=== PATIENT | male | born 1940 | race Caucasian/White ===

== ENCOUNTER → 2020-01-06 09:00 | Outpatient (CLI) | payer MEDICARE, SELFPAY ==
--- NOTE | ~2020-01-06 | MR_ITS ---
EXAMINATION: MR shoulder RT wo con DATE: 01/06/2020 09:57 INDICATION: Rotator cuff tear. TECHNIQUE: Magnetic resonance imaging (MRI) of the right shoulder was performed without intravenous c ontrast. Sequences included axial PD-weighted FS FSE, coronal oblique PD-weighted FS FSE, coronal obl ique T2-weighted FS FSE, sagittal PD-weighted FS FSE, and sagittal T1-weighted SE. Evaluation is mild ly limited by some degree of motion artifact or blurring on all sequences, each of which was repeated . COMPARISON: Right shoulder radiographs dated 12/31/2019 FINDINGS: Coracoacromial arch: The acromion undersurface is curved in morphology (type II). The coracoacromial ligament is normal. M ild to moderate acromioclavicular osteoarthritis. Rotator cuff: Complete full-thickness tears of the supraspinatus and infraspinatus tendons along the superior and m iddle facet footplates. There appears be a small amount of residual frayed tendon material along the middle facet footplate. The tear margin is retracted up to 3.5 cm medially to the level of the acromi oclavicular joint line. There is moderate tendinopathy along the retracted tear margin. 1.4 x 0.6 x 0 .6 cm intrasubstance ganglion cyst along the myotendinous junction of the infraspinatus tendon. The t eres minor tendon is normal. Mild to moderate subscapularis tendinopathy more severe along the cephal ad aspect of the tendon without discrete tear. Medial retraction as well as mild fatty atrophy of the supraspinatus and infraspinatus muscle bellies. Biceps tendon, glenoid labrum and glenohumeral cartilage: Mild tendinopathy without discrete tear of the intra-articular long head biceps tendon. Amorphous inc reased signal consistent with degeneration at the posterosuperior glenoid labrum without discrete speedy ear labral tear. Partial-thickness cartilage loss with smooth chondral surface along the cephalad thi rd of the glenoid. Additional partial thickness cartilage loss with chondral surface irregularity at the apex of the humeral head. Fluid: Small glenohumeral joint effusion with fluid extending into the subacromial/subdeltoid bursa as well as the subcoracoid bursa through the full-thickness rotator cuff tear. No loose osteochondral bodies. Bones: Normal marrow signal with no fracture or pathologic marrow replacing process. Mild cystic change at t he middle facet of the greater tuberosity likely related to chronic rotator cuff disease. IMPRESSION: 1. Large full-thickness rotator cuff tear involving the entire supraspinatus and infraspinatus tendon s. 2. Mild glenohumeral osteoarthritis with posterior superior labral degeneration. 3. Mild to moderate acromioclavicular osteoarthritis. 4. Evaluation mildly to moderately limited by some degree of motion artifact on all sequences despite repetition of every sequence. Reviewed, dictated and finalized at location A. IMPRESSION: 1. Large full-thickness rotator cuff tear involving the entire supraspinatus an d infraspinatus tendons. 2. Mild glenohumeral osteoarthritis with posterior superior labral degeneration . 3. Mild to moderate acromioclavicular osteoarthritis. 4. Evaluation mildly to moderately limited by some degree of motion artifact on all sequences despite repetition of every sequence.
== END ==
PROVIDERS: PCP Family Medicine; Visit Provider Orthopaedic Surgery
DX: M19.011 Primary osteoarthritis, right shoulder (principal); M75.101 Unspecified rotator cuff tear or rupture of right shoulder, not specified as traumatic
CPT/HCPCS: 73221

== ENCOUNTER 2020-03-10 13:51 | Outpatient (CLI) | payer MEDICARE, SELFPAY ==
[2020-03-10 14:53] LABS: Basophils Percent Auto 0.3 % (0.2-1.2); Eosinophils Absolute Auto 0.1 K/mm3 (0-0.3); Eosinophils Percent Auto 0.7 % (0-4.4); Hemoglobin 15.3 g/dL (14.0-18.0); Immature Granulocyte Absolute 0.03 K/mm3 (0.00-0.031); Immature Granulocyte Percent A 0.4 % (0-0.5); Lymphocytes Percent Auto 13.1 % (18.3-44.2); Mean Corpuscular HGB Conc 33.3 g/dl (32-36); Mean Corpuscular Hemoglobin 29.3 pg (26-34); Mean Corpuscular Volume 88.1 fl (80-100); Mean Platelet Volume 12.1 fl (7.4-10.4); Monocytes Absolute Auto 0.5 K/mm3 (0.1-0.6); Monocytes Percent Auto 6.8 % (2.6-8.5); Neutrophils Percent Auto 78.7 % (45.5-73.1); Platelet Count Result 179 k/mm3 (150-375); Red Blood Count 5.22 M/mm3 (4.6-6.20); Red Cell Distribution Width 13.1 % (11.5-14.5); White Blood Count 7.6 K/mm3 (4.5-10.0)
== END 2020-03-10 13:52 | disposition home or self-care (01) ==
PROVIDERS: PCP Family Medicine; Visit Provider Orthopaedic Surgery
DX: S46.011D Strain of muscle(s) and tendon(s) of the rotator cuff of right shoulder, subsequent encounter (principal); Z01.818 Encounter for other preprocedural examination; X58.XXXD Exposure to other specified factors, subsequent encounter
CPT/HCPCS: 36415; 85025; 86850; 86900; 86901; 87081

== ENCOUNTER 2020-03-13 01:20 | Outpatient (CLI) | payer MEDICARE, SELFPAY ==
[2020-03-13 19:30] LABS: SARS-CoV-2 RNA PCR Positive
== END 2020-03-13 01:21 | disposition home or self-care (01) ==
LOC: ANHCOVIDDT 01:20
PROVIDERS: PCP Family Medicine; Visit Provider Orthopaedic Surgery
DX: Z01.812 Encounter for preprocedural laboratory examination (principal); U07.1 COVID-19
CPT/HCPCS: 87635; C9803; U0003

== ENCOUNTER 2020-05-01 00:23 | Outpatient (CLI) | payer MEDICARE, SELFPAY ==
[2020-05-01 17:37] LABS: SARS-CoV-2 RNA PCR Negative
== END 2020-05-01 00:24 | disposition home or self-care (01) ==
LOC: ANHCOVIDDT 00:23
PROVIDERS: PCP Family Medicine; Visit Provider Orthopaedic Surgery
DX: Z01.812 Encounter for preprocedural laboratory examination (principal); Z20.828 Contact with and (suspected) exposure to other viral communicable diseases
CPT/HCPCS: 87635; C9803; U0003

== ENCOUNTER 2020-05-04 10:56 | Inpatient (IN) | payer MEDICARE, SELFPAY ==
[2020-03-10 13:58] VITALS: BP 147/75; PULSE 56; RESP 16; TEMP 37.1; O2SAT 96; BMI 31.4
[2020-04-27 09:44] VITALS: BMI 32.5
--- NOTE | 2020-05-03 14:54 | WPDANESEPPF ---
Anes - Initial Pre Proc Eval Procedure: Operation Date: 05/04/20 07:30 Proposed Procedures p Right Reverse Total Shoulder Arthroplasty - Leonidas Flores MD Date/Time: 05/03/20 14:54 Surgeon: Leonidas Flores MD Pre Op Diagnosis: Right Rotator Cuff Tear Patient Data Age: 79 Gender: M Height: 1.91 m Weight: 118 kg Last Vital Signs Temp 37.1 C 03/10/20 13:58 Pulse 56 L 03/10/20 13:58 Resp 16 03/10/20 13:58 BP 147/75 H 03/10/20 13:58 Pulse Ox 96 03/10/20 13:58 Allergies Allergy/AdvReac Type Severity Reaction Status Date / Time No Known Allergies Allergy Verified 04/27/20 09:53 Home Medications Medication Instructions Recorded Confirmed Type aspirin 81 mg tablet,delayed 81 mg PO DAILY 12/31/19 05/04/20 History release cetirizine 10 mg tablet 5 mg PO DAILY 12/31/19 05/04/20 History clopidogrel 75 mg tablet 75 mg PO DAILY 12/31/19 05/04/20 History metoprolol tartrate 25 mg tablet 25 mg PO BID 12/31/19 05/04/20 History multivitamin 1 cap PO DAILY 12/31/19 05/04/20 History fluticasone propionate [Flonase 1 spray INTRANASAL BID 03/10/20 05/04/20 History Allergy Relief] Patient hx anesthesia problems: none Family hx anesthesia problems: none PMFSH Past Medical History Medical History (Updated 05/03/20 @ 14:56 by Fareed To MD) CAD (coronary artery disease) 4 coronary stents Deviated septum Enlarged prostate Heart disease Hypertension IBS (irritable bowel syndrome) Obesity Pilonidal cyst Wrist arthritis Surgical History Surgical History (Updated 05/03/20 @ 14:55 by Fareed To MD) H/O heart artery stent 4 coronary stents History of appendectomy Family History Family History Other Carcinoma of colon Family history of arthritis Family history of cardiovascular disease Social History Social History Smoking status: Former smoker Additional smoking assessment comments: STATES SMOKED 1 1/2PK/DAY/8YRS QUIT 1969 Alcohol intake: never Living arrangements: with family Spiritual care concerns: No Anes - Eval Final PreProcedure Day of Procedure 05/03/20 14:54 Patient weight: obese Heart: regular rate and rhythm Lungs: clear to auscultation and normal air movement Airway: Mallampati scale class II Neurological: alert and oriented Last oral intake: >/= 8 hours ASA classification: III Emergent: no Anesthetic plan: proceed Anesthesia type and monitoring: general ETT Informed Consent: The patient's anesthetic plan and its attendant risks and benefits were discussed with the patient/family/POA. Questions were solicited and answers provided to the satisfaction of the patient/family/POA.
[2020-05-04] VITALS (13 sets, daily range): BP systolic 126–156; BP diastolic 68–91; PULSE 52–70; RESP 16–22; TEMP 36.1–37.1; O2SAT 93–100
--- NOTE | ~2020-05-04 | XR_ITS ---
EXAMINATION: XR shoulder RT min 2V DATE: 05/04/2020 10:23 INDICATION: Status post reverse right total shoulder arthroplasty. TECHNIQUE: AP and transscapular Y views of the right shoulder were obtained. COMPARISON: None FINDINGS: Reverse right total shoulder arthroplasty which is in near-anatomic alignment. No fracture. Mild righ t acromioclavicular osteoarthritis. Expected postoperative gas in the surrounding soft tissues. Right lung is clear. IMPRESSION: Reverse right total shoulder arthroplasty in near-anatomic alignment, negative for postoperative purp oses. Reviewed, dictated and finalized at location A. IMPRESSION: Reverse right total shoulder arthroplasty in near-anatomic alignment, negative for postoperative purposes.
[2020-05-04] MEDS: ACETAMINOPHEN 500 MG TABLET 1000 MG PO (07:00)
[2020-05-04] MEDS: TRANEXAMIC ACID 1,000MG/ISO100 1,000 MG/100 ML BAG 200 MG IVPB (07:00)
--- NOTE | 2020-05-04 07:16 | WPDHPUPDATE1 ---
History and Physical Update Update Date/Time: 05/04/20 07:16 History and Physical has been reviewed, including an updated exam of the patient. There are NO changes in the patient's condition. Risks, benefits, and alternatives have been discussed and questions answered. Patient agrees to proceed with procedure.
[2020-05-04] MEDS: LACTATED RINGERS 1,000 ML 30 ML IV CONT ×2 (07:20→10:06)
[2020-05-04] MEDS: KETOROLAC 15 MG/ML VIAL (*BKC) IV PUSH (07:21)
[2020-05-04] MEDS: ceFAZolin 2 GM/D5W 50 ML 2 GM/50 ML BAG IVPB (07:27)
--- NOTE | 2020-05-04 07:34 | WPDANESPNB ---
Anes - Peripheral Nerve Block Date/Time: 05/04/20 07:34 I have discussed with the patient/family/POA the placement of a peripheral nerve block for post-operative pain management, including associated risks, benefits, complications, and side effects. Alternative methods of post-operative analgesia were detailed. Questions were solicited and answers provided to the satisfaction of the patient/family/POA. Time-Out: A pre-procedural Time-Out was completed immediately before starting the procedure and confirmed: Patient Identification, Site, Procedure, Patient Position and the Availability of Requisite Equipment. Clinical Indications: Acute post-operative pain management requested by the operative surgeon. Nerve Block Insertion Note Anes-nerve block: supraclavicular right Patient position: supine Skin prep: chlorhexidine Needle: 22 gauge, stimulating, insulated echogenic needle. Needle length: 80 mm Technique: ultrasound (in plane) Injectate: bupivacaine 0.5% with epi 5 mcg/ml (20cc) Observations: tolerated well Complications: none Procedure start time:: 715 Procedure end time:: 720
--- NOTE | 2020-05-04 10:08 | PM.PROC ---
Procedure Note - Detailed Date of procedure: 05/04/20 Pre-op diagnosis: Right Rotator Cuff Tear Post-op diagnosis: same Procedure performed: Reverse total shoulder arthroplasty. Biceps tenodesis. Description of procedure: Massive rotator cuff tear with atrophy and severe retraction, including all of the supra and infraspinatus. Teres minor intact. Severe clinical symptoms. Reverse total shoulder performed. Subscapularis repaired. Anatomic retroversion was approximately 35-40 degrees. The stem was placed at 30? retroversion. Bone quality was excellent. The 25 mm glenoid sphere base plate was placed at the inferior aspect of the glenoid. The post slightly exited the vault posteriorly. The 10 degree inferior guide was used. Implants: Tornier Aequalis reversed glenoid base plate 25mm, reversed insert 6mm thickness; Aequalis Ascend Flex humeral stem size 3B. Aequalis Reversed II glenoid sphere 39 diameter; Reversed tray high offset at 11 o' clock position. Anesthesia: GETA and regional Surgeon: Leonidas Flores MD Estimated blood loss (mL): 150 Drains: No Packing: No Pathology: none sent Complications: None Condition: stable Disposition: PACU Findings: OPERATIVE DETAILS: The patient was given an interscalene block in the preoperative area. Preoperative antibiotics were given. The patient was transferred to the operating room and a general anesthetic was administered. The beach chair position was used at 45 degrees. All bony prominences were padded. The head was carefully stabilized on the [facility] overhead crane inspector. A sterile prep and drape was performed in the usual manner with ChloraPrep. A longitudinal incision was created at the anterior shoulder just lateral to the deltopectoral interval. Careful dissection was performed to expose the interval and protect the cephalic vein. The vein was retracted medially. The upper border of the pectoralis was released. Anterior circumflex vessel branches were suture ligated. The biceps was tenodesed. A subscapularis tenotomy was performed. The inferior capsule was released, exposing the humeral head. Osteophytes were removed. Care was taken to stay on bone to protect the axillary nerve. The anatomic head cut was taken with the oscillating saw. Sounding and broaching was performed. The neck anteversion and inclination were carefully assessed. The cut protector was placed, and attention was turned to the glenoid. Retractors were placed. Releases were carried out for exposure. The subscapularis was mobilized, the inferior capsule and long head of triceps released, and the superior and middle glenohumeral ligaments released as well. Labral tissue was resected as needed. The sizing template was used to assess the baseplate position low on the glenoid. A guide pin was placed. Minimal reaming was used to accomplish a flat surface without violating the subchondral bone. Version was corrected according to preoperative templating. The boss, and central screw were drilled. The real component was impacted into position. A compression screw was placed anteriorly. Supplemental locking screws were placed superiorly and inferiorly. The glenosphere was impacted into the taper, and secured with the locking screw. The humeral components were trialed. The real humeral stem and tray, and insert were impacted into position. The shoulder was copiously irrigated periodically with pulsatile lavage. The shoulder was reduced and stability confirmed. The biceps tenodesis was incorporated with the pectoralis tendon repair. The deltopectoral space was reapproximated with number 2 Vicryl. The remained tissue was closed with 0 Quill and 2-0 Quill running suture and steri-strips. A sterile dressing and shoulder immobilizer was placed. The patient was transferred to the recovery room.
[2020-05-04] MEDS: SODIUM CHLORIDE 0.9% IV 1,000 ML 125 ML IV CONT (12:01)
[2020-05-04] MEDS: KETOROLAC 30 MG/ML VIAL (*BKC) 15 MG IV PUSH ×2 (12:02→17:20)
[2020-05-04] MEDS: ASPIRIN 81 MG ENTERIC TABLET PO (17:15)
[2020-05-04] MEDS: DOCUSATE SODIUM 100 MG CAPSULE PO (20:37)
[2020-05-04] MEDS: METOPROLOL TARTRATE 25 MG TABLET PO (20:37)
[2020-05-04] MEDS: FLUTICASONE PROPIONATE 0.05% NA SPR 16 GM BTL (*BKC) 1 SPRAY NASAL (20:38)
--- NOTE | 2020-05-04 23:50 | PC.NURSE ---
Pt complaining midsternal chest pain non radiating. Pt rates pain as a 6. Pt anxious. Rapid response team called. Pt placed on tele.
[2020-05-05] VITALS (23 sets, daily range): BP systolic 123–175; BP diastolic 62–80; PULSE 59–87; RESP 20–24; TEMP 36.3–37.2; O2SAT 95–99
--- NOTE | 2020-05-05 | ECHO_ITS ---
Patient Info Name: Kendall Mckeon Age: 79 years : 1940 Gender: Male Ht: 75 in Wt: 255 lbs BSA: 2.50 m2 HR: 60 bpm BP: 139 / 62 mmHg Heart Rhythm: Sinus Rhythm Technical Quality: Good Exam Date: 05/05/2020 11:34 AM Exam Location: [facility] Pulmonary Patient Status: Inpatient Admit Date: 05/04/2020 Staff Ordering Physician: Cecilio Munguia MD Command Post Superintendent: Brant Lao RDCS Attending Provider: Leonidas Flores MD Exam Type: CA echo doppler color flow Study Info Indications I21.4 - Non-ST elevation (NSTEMI) myocardial infarction Complete two-dimensional, color flow and Doppler transthoracic echocardiogram is performed. Strain analysis performed. History/Risk Factors NSTEMI; CAD s/p 4 stents, HTN, chest pain. Summary 1. Complete two-dimensional, color flow and Doppler transthoracic echocardiogram is performed. 2. Left ventricular systolic function is normal, estimated at 60-65%. 3. There is mildly increased left ventricular wall thickness. 4. There is mild aortic valve sclerosis. 5. There is mild aortic valve stenosis. 6. There is mild mitral valve regurgitation. Left Ventricle Left ventricular chamber dimension is normal. Left ventricular systolic function is normal, estimated at 60-65%. There is mildly increased left ventricular wall thickness. Left ventricular septal wall motion is normal. The left ventricular diastolic function is normal. Right Ventricle Right ventricular chamber dimension is normal. Right ventricular systolic function is normal. Left Atria Left atrial chamber dimension is normal. Right Atria Right atrial chamber dimension is normal. Aortic Valve The aortic valve is trileaflet. There is mild aortic valve sclerosis. There is mild aortic valve stenosis. There is no aortic valve regurgitation. Pulmonic Valve The pulmonic valve is normal. There is no pulmonic valve stenosis. There is no pulmonic regurgitation. Mitral Valve The mitral valve has normal leaflets. There is no mitral valve stenosis. There is mild mitral valve regurgitation. Tricuspid Valve The tricuspid valve leaflets are normal. There is no significant tricuspid valve stenosis. There is no tricuspid valve regurgitation. No pulmonary hypertension, estimated pulmonary arterial systolic pressure is 35 mmHg. Pericardium/Pleural The pericardium appears normal. There is no pericardial effusion. Inferior Vena Cava Normal inferior vena cava with >50% collapse upon inspiration consistent with normal right atrial pressure, 5 mmHg. Aorta The aortic root size at the sinus of Valsalva is normal. The prox ascending aorta size is normal. Left Ventricular Outflow Tract Name Value Normal LVOT 2D LVOT Diameter 2.0 cm LVOT Doppler LVOT Peak Gradient 7 mmHg LVOT Mean Gradient 4 mmHg LVOT VTI 29 cm LVOT VTI/AV VTI Ratio 0.8 LVOT Stroke Volume 93 ml LVOT CO 5.4 l/min
[2020-05-05] MEDS: KETOROLAC 30 MG/ML VIAL (*BKC) 15 MG IV PUSH ×3 (00:01→13:44)
[2020-05-05 01:20] LABS: Creatine Kinase 112 U/L (55-170); Creatine Kinase MB 1.7 ng/mL (0.0-2.37)
[2020-05-05 01:21] LABS: Troponin I 0.165 ng/mL (0.000-0.034)
--- NOTE | 2020-05-05 01:37 | PM.IMCN ---
Assessment and Plan Assessment and plan (1) CAD (coronary artery disease): Qualifiers: Associated angina: without angina Coronary Disease-Associated Artery/Lesion type: [place] artery [place] vs. transplanted heart: [place] heart Qualified Code(s): I25.10 - Atherosclerotic heart disease of [place] coronary artery without angina pectoris Code(s): I25.10 - Atherosclerotic heart disease of [place] coronary artery without angina pectoris Status: Acute (2) Rotator cuff tear, right: Qualifiers: Rotator cuff tear extent: unspecified tear extent Rotator cuff tear trauma status: nontraumatic Qualified Code(s): M75.101 - Unspecified rotator cuff tear or rupture of right shoulder, not specified as traumatic Code(s): M75.101 - Unspecified rotator cuff tear or rupture of right shoulder, not specified as traumatic Status: Acute (3) Elevated troponin: Code(s): R77.8 - Other specified abnormalities of plasma proteins Status: Acute (4) Hypertension: Code(s): I10 - Essential (primary) hypertension Status: Acute Additional Plan Patient is a 79 year old with past medical history CAD underwent right reverse total shoulder arthroplasty, biceps tenodesis. developed chest pain Postop later in the evening and rapid response was called. his troponin was elevated at 0.16, EKG showed normal sinus rhythm with PVC, no ST elevation , his symptoms resolved with nitroglycerin x2. his troponins are being trended. # atypical chest pain, elevated troponin - trending troponins, initial troponin 0.165 elevated, chest pain resolved with nitro , if troponin continues to rise will move patient to IMU and start heparin drip - heart score 6, KAL score 4 - chest pain was nonexertional, patient was sitting in bed however he does have significant coronary history and the chest pain was relieved by nitro - patient takes aspirin 81, will give aspirin 162mg x 1 - supplemental oxygen as needed, nitroglycerin p.r.n. - consult to cardiology # CAD s/p 4 stents # HTN - continue home metoprolol, aspirin, Plavix # seasonal allergies: Continue cetirizine, flonase # right rotator cuff repair - s/p reverse total shoulder arthroplasty and Biceps tenodesis by Dr: Leonidas Flores. - continue pain control, DVT prophylaxis, nausea control as per primary team Thank you for consult hospitalist service consult! if you have any questions please do not hesitate to call. HPI Data of Consult Consult date: 05/05/20 Requesting Physician: Leonidas Flores MD Primary Care Provider: Lm Westfall, Jeri. Consult Narrative Narrative: Kendall Mckeon is a 79 year old male with past medical history of CAD status post 4 stents who is status post reverse total shoulder arthroplasty and biceps tenodesis by Dr. Leonidas Flores. the procedure went well with no problems. Later in the evening rapid response was called for complaints of chest pain. patient states he has reflux in the past and this chest pain felt different. this chest pain was in the center of his chest with pressure and heaviness. EKG showed normal sinus rhythm with PVC, no ST elevation, his symptoms resolved with nitroglycerin x2. Initial troponin was 0.165, his troponins are being trended. patient has significant family history coronary disease. He states his own personal coronary disease is significant in that he has at least one stent in each great vessel. He quit smoking 50 years ago was smoking a pack and half a day for 8 years. He states his last heart catheterization was over 6 years ago. Review of Systems Review of Systems: Narrative: Constitutional: No Fever, No Chills, No Night Sweats, No Fatigue, No Malaise ENT/Mouth: No Hearing Changes, No Ear Pain, No Nasal Congestion, No Sinus Pain, No Hoarseness, No sore throat, No Rhinorrhea, No Swallowing Difficulty Eyes: No Eye Pain, No Redness, No Vision Changes Cardiovascular: No Palpitations, No Dyspne
[2020-05-05] MEDS: ASPIRIN 81 MG CHEWABLE TABLET 162 MG PO (02:27)
[2020-05-05] MEDS: FAMOTIDINE 20 MG TABLET PO (03:32)
[2020-05-05 03:57] LABS: Troponin I 0.214 ng/mL (0.000-0.034)
--- NOTE | 2020-05-05 04:43 | PC.NURSE ---
This patient, Kendall Mckeon, was transferred to [ [id number]] on 05/05/20 at 0430. Personal belongings sent with patient. Report given to Vicky. Appropriate documentation sent with patient. Dr Flores notified of transfer. Pt notified his as well
--- NOTE | 2020-05-05 05:36 | PC.NURSE ---
This patient, Kendall Mckeon, was received from [[id number] ] on 05/05/20 at 0430. Personal belongings list checked and signed. Patient/family oriented to unit policies and routines
[2020-05-05 06:26] LABS: Basophils Percent Auto 0.2 % (0.2-1.2); Eosinophils Percent Auto 0.1 % (0-4.4); Hematocrit 41.3 % (42.0-52.0); Hemoglobin 14.1 g/dL (14.0-18.0); Immature Granulocyte Absolute 0.07 K/mm3 (0.00-0.031); Immature Granulocyte Percent A 0.6 % (0-0.5); Lymphocytes Absolute Auto 1.07 K/mm3 (0.9-3.2); Lymphocytes Percent Auto 9.1 % (18.3-44.2); Mean Corpuscular HGB Conc 34.1 g/dl (32-36); Mean Corpuscular Hemoglobin 29.4 pg (26-34); Mean Corpuscular Volume 86.2 fl (80-100); Mean Platelet Volume 11.6 fl (7.4-10.4); Monocytes Absolute Auto 1.7 K/mm3 (0.1-0.6); Monocytes Percent Auto 14.4 % (2.6-8.5); Neutrophils Absolute Auto 8.9 K/mm3 (1.3-6.7); Neutrophils Percent Auto 75.6 % (45.5-73.1); Platelet Count Result 152 k/mm3 (150-375); Red Blood Count 4.79 M/mm3 (4.6-6.20); White Blood Count 11.8 K/mm3 (4.5-10.0)
[2020-05-05 06:29] LABS: INR 1.3; Prothrombin Time 15.5 Seconds (11.1-14.7)
[2020-05-05 06:30] LABS: Partial Thromboplastin Time 31.5 SECONDS (22.3-36.8)
[2020-05-05 06:50] LABS: Cholesterol 128 mg/dL (0-200); HDL Direct 33 mg/dL; Triglycerides 95 mg/dL (<150)
[2020-05-05 06:53] LABS: LDL Cholesterol Direct 73 mg/dL
[2020-05-05 07:40] LABS: Hypochromasia 1+ (NORMAL); Ovalocytes 1+ (NORMAL); Platelet Estimate Adequate (Adequate)
--- NOTE | 2020-05-05 07:42 | PCOTNOTE ---
OT evaluation attempted this morning. Hold this AM per RN due to elevated Troponin. Will attempt OT evaluation at later time when medically appropriate.
[2020-05-05] MEDS: HEPARIN SODIUM 5,000 UNITS/ML VIAL 4000 UNITS IV PUSH ×3 (08:24→22:35)
[2020-05-05] MEDS: LORATADINE 10 MG TABLET PO (08:26)
[2020-05-05] MEDS: MULTIVITAMINS THERAPEUTIC TAB (*BKC) 1 TABLET PO (08:30)
[2020-05-05] MEDS: ASPIRIN 81 MG ENTERIC TABLET PO ×2 (08:30→17:31)
[2020-05-05] MEDS: METOPROLOL TARTRATE 25 MG TABLET PO ×2 (08:30→20:41)
[2020-05-05] MEDS: FLUTICASONE PROPIONATE 0.05% NA SPR 16 GM BTL (*BKC) 1 SPRAY NASAL ×2 (08:31→20:45)
[2020-05-05] MEDS: DOCUSATE SODIUM 100 MG CAPSULE PO ×2 (08:31→20:44)
[2020-05-05] MEDS: HEPARIN SOD/D5W 100 UNITS/ML 25,000 UNITS/250 ML BAG 10 UNITS IV CONT (08:34)
--- NOTE | 2020-05-05 10:10 | PCPTNOTE ---
Attempted PT eval. Hold per RN due to increased troponins. Will try again at later time.
[2020-05-05 10:17] LABS: Hematocrit 43.7 % (42.0-52.0); Hemoglobin 14.5 g/dL (14.0-18.0); Mean Corpuscular HGB Conc 33.2 g/dl (32-36); Mean Corpuscular Hemoglobin 29.6 pg (26-34); Mean Corpuscular Volume 89.2 fl (80-100); Mean Platelet Volume 10.3 fl (7.4-10.4); Platelet Count Result 168 k/mm3 (150-375); Red Cell Distribution Width 13.2 % (11.5-14.5); White Blood Count 10.4 K/mm3 (4.5-10.0)
[2020-05-05 10:32] LABS: Anion Gap 7 mmol/L (8-16); Blood Urea Nitrogen 18 mg/dL (9-20); Calcium 8.4 mg/dL (8.4-10.2); Carbon Dioxide 26 mmol/L (22-30); Chloride 104 mmol/L (98-107); Estimated CRCL calculation 77 ml/min; Estimated Glomerular Filt Rate > 60; Glucose 192 mg/dL (75-110); Magnesium 1.6 mg/dL (1.6-2.3); Potassium 3.7 mmol/L (3.4-5.0); Sodium 137 mmol/L (137-145)
--- NOTE | 2020-05-05 10:44 | ECG_ITS ---
Measurements Intervals [place] Rate: 60 P: 91 LA: 212 QRS: 21 QRSD: 81 T: 15 QT: 383 QTc: 383 Interpretive Statements SINUS RHYTHM WITH FIRST DEGREE AV BLOCK EARLY PRECORDIAL R/S TRANSITION BASELINE WANDER- II, III, V2 ABNORMAL ECG Electronically Signed On 05-05-2020 12:03:52 CDT by Martín Cuellar D.O.
--- NOTE | 2020-05-05 11:16 | PM.CNCAR ---
Assessment and Plan Assessment and plan (1) Elevated troponin: Code(s): R77.8 - Other specified abnormalities of plasma proteins Status: Acute Assessment and Plan: likely due to non ST elevation myocardial function, seems to be showing more elevation now, currently on heparin and aspirin, continue closer monitoring, in view of history of stents in the past and elevated troponin he would need to have cardiac catheterization (2) CAD (coronary artery disease): Qualifiers: Coronary Disease-Associated Artery/Lesion type: [place] artery [place] vs. transplanted heart: [place] heart Associated angina: without angina Qualified Code(s): I25.10 - Atherosclerotic heart disease of [place] coronary artery without angina pectoris Code(s): I25.10 - Atherosclerotic heart disease of [place] coronary artery without angina pectoris Status: Acute (3) Rotator cuff tear, right: Qualifiers: Rotator cuff tear extent: unspecified tear extent Rotator cuff tear trauma status: nontraumatic Qualified Code(s): M75.101 - Unspecified rotator cuff tear or rupture of right shoulder, not specified as traumatic Code(s): M75.101 - Unspecified rotator cuff tear or rupture of right shoulder, not specified as traumatic Status: Acute (4) Hypertension: Code(s): I10 - Essential (primary) hypertension Status: Acute (5) Non-ST elevation myocardial infarction (NSTEMI): Code(s): I21.4 - Non-ST elevation (NSTEMI) myocardial infarction Status: Acute Assessment and Plan: with chest pain and elevated troponin, will proceed with cardiac catheterization. will plan cardiac catheterization. The procedure was discussed with the patient, risks, benefits, and alternative diagnostic measure was explained, patient agreed to the procedure Additional Plan Thank you for allowing me to participate in this patient's care, I will be following up with you. Please do not hesitate to call me for any other inquiry History of Present Illness History of Present Illness Consult date/time: 05/05/20 11:16 chief complaint is chest pain. Mr. Mckeon is 79 years old gentleman, with history of coronary artery disease status post multiple stents to the RCA into the LAD, was admitted to the hospital for elective right shoulder surgery rotator cuff repair, underwent his surgery with no complication and he did well but noted yesterday to have chest pain. Had history of tightness in the chest mostly retrosternal with no radiation, improved with nitroglycerin. Subsequently cardiac enzymes were done and showed slight elevation of troponin. He has history of known coronary disease previous stents he normally follows with Dr. Claros at [facility], he had a stress test prior to his surgery back in January and was reported negative. According to him has been taking his medications regularly. Currently after transfer has been in sinus rhythm and no more chest pain. Troponin is slightly elevated and trending up. No significant shortness of breath no dizziness no lightheadedness Reason For Visit: Right Rotator Cuff Tear Review of Systems Constitutional: Constitutional: Reports no additional constitutional complaints Cardiovascular: Cardiovascular: Reports as per HPI Respiratory: Respiratory: Reports as per HPI [facility] Past Medical History Medical History CAD (coronary artery disease) 4 coronary stents Deviated septum Enlarged prostate Heart disease Hypertension IBS (irritable bowel syndrome) Obesity Pilonidal cyst Wrist arthritis Surgical History Surgical History H/O heart artery stent 4 coronary stents History of appendectomy Status post bilateral knee replacements Family History Family History Other Carcinoma of colon Family
--- NOTE | 2020-05-05 11:22 | PCOTNOTE ---
Patient to go for cardiac cath this afternoon. Will complete OT evaluation once complete and medically appropriate.
--- NOTE | 2020-05-05 13:00 | WPDANESPN ---
Anes - Prog Note Post-Op Date/Time: 05/05/20 13:00 Cardiovascular status: normal Respiratory status: normal Airway patency: baseline Mental status: baseline Post-Op hydration status: normal Vital Signs: Last Vital Signs Temp 97.6 F 05/05/20 12:39 Pulse 59 L 05/05/20 12:39 Resp 20 05/05/20 12:39 BP 127/65 05/05/20 12:39 Pulse Ox 99 05/05/20 12:39 Pain Score (VAS): 08/25 I/O: Intake & Output 05/04/20 05/05/20 05/05/20 23:59 07:59 15:59 Intake Total 720 700 240 Output Total 300 800 100 Balance 420 -100 140 Laboratory Tests 05/05/20 09:57 05/05/20 09:57 05/04/20 05/04/20 05/05/20 23:58 23:58 03:04 WBC RBC Hgb Hct MCV MCH MCHC RDW Plt Count MPV Immature Gran % (Auto) Neut % (Auto) Lymph % (Auto) [place] % (Auto) Eos % (Auto) Baso % (Auto) Lymph # (Auto) [place] # (Auto) Eos # (Auto) Baso # (Auto) Abs Immat Gran (auto) Absolute Neuts (auto) Absolute Nucleated RBC Nucleated RBC % Platelet Estimate Hypochromasia Ovalocytes PT INR APTT Sodium Potassium Chloride Carbon Dioxide Anion Gap BUN Creatinine Estim Creat Clear Calc Estimated GFR Glucose Calcium Magnesium Total Creatine Kinase Cancelled 112 CK-MB (CK-2) Cancelled 1.7 Troponin I Cancelled 0.165 H* 0.214 H* D Triglycerides Cholesterol LDL Cholesterol Direct HDL Direct 05/05/20 05/05/20 05/05/20 05:41 05:41 05:41 WBC RBC Hgb Hct MCV MCH MCHC RDW Plt Count MPV Immature Gran % (Auto) Neut % (Auto) Lymph % (Auto) [place] % (Auto) Eos % (Auto) Baso % (Auto) Lymph # (Auto) [place] # (Auto) Eos # (Auto) Baso # (Auto) Abs Immat Gran (auto) Absolute Neuts (auto) Absolute Nucleated RBC Nucleated RBC % Platelet Estimate Hypochromasia Ovalocytes PT 15.5 H INR 1.3 APTT 31.5 Sodium Potassium Chloride Carbon Dioxide Anion Gap BUN Creatinine Estim Creat Clear Calc Estimated GFR Glucose Calcium Magnesium Total Creatine Kinase CK-MB (CK-2) Troponin I 0.260 H* D Triglycerides 95 Cholesterol 128 LDL Cholesterol Direct 73 HDL Direct 33 05/05/20 05/05/20 05/05/20 05:41 09:57 09:57 WBC 11.8 H 10.4 H RBC 4.79 4.90 Hgb 14.1 14.5 Hct 41.3 L 43.7 MCV 86.2 89.2 MCH 29.4 29.6 MCHC 34.1 33.2 RDW 13.0 13.2 Plt Count 152 168 MPV 11.6 H 10.3 Immature Gran % (Auto) 0.6 H Neut % (Auto) 75.6 H Lymph % (Auto) 9.1 L [place] % (Auto) 14.4 H Eos % (Auto) 0.1 Baso % (Auto) 0.2 Lymph # (Auto) 1.07 [place] # (Auto) 1.7 H Eos # (Auto) 0.0 Baso # (Auto) 0.0 Abs Immat Gran (auto) 0.07 H Absolute Neuts (auto) 8.9 H Absolute Nucleated RBC 0.0 Nucleated RBC % 0.0 Platelet Estimate Adequate Hypochromasia 1+ Ovalocytes 1+ PT INR APTT Sodium 137 Potassium 3.7 Chloride 104 Carbon Dioxide 26 Anion Gap 7 L BUN 18 Creatinine 1.00 Estim Creat Clear Calc 77 Estimated GFR > 60 Glucose 192 H Calcium 8.4 Magnesium 1.6 Total Creatine Kinase CK-MB (CK-2) Troponin I Triglycerides Cholesterol LDL Cholesterol Direct HDL Direct Post-procedural complaints: none Patient Feedback: Patient satisfied with anesthetic care.
--- NOTE | 2020-05-05 13:06 | PCOTNOTE ---
Spoke with Orthopedic surgeon who advised to hold OT evaluation this date until cardiac procedure completed 05/06 and patient medically appropriate.
[2020-05-05 15:01] LABS: Partial Thromboplastin Time 40.7 SECONDS (22.3-36.8)
--- NOTE | 2020-05-05 15:04 | PM.IMPN ---
Progress Note: A&P Assessment and Plan (1) CAD (coronary artery disease): Qualifiers: Coronary Disease-Associated Artery/Lesion type: [place] artery [place] vs. transplanted heart: [place] heart Associated angina: without angina Qualified Code(s): I25.10 - Atherosclerotic heart disease of [place] coronary artery without angina pectoris Code(s): I25.10 - Atherosclerotic heart disease of [place] coronary artery without angina pectoris Status: Acute Assessment and Plan: 05/05/20 15:04 patient is 79-year-old status post on 05/04 right shoulder rotator cuff Reverse total shoulder arthroplasty. Bicep tenodesis.surgery, early this morning patient developed chest chest pain which was relieved by sublingual nitroglycerin, patient tropes are elevated patient was placed on heparin drip and transferred to IMU, this morning patient was seen by Cardiology chest pain had improved tropes were trending up and cardiology's recommend patient will benefit further evaluation with cardiac catheterization, and further recommendation to follow. (2) Rotator cuff tear, right: Qualifiers: Rotator cuff tear extent: unspecified tear extent Rotator cuff tear trauma status: nontraumatic Qualified Code(s): M75.101 - Unspecified rotator cuff tear or rupture of right shoulder, not specified as traumatic Code(s): M75.101 - Unspecified rotator cuff tear or rupture of right shoulder, not specified as traumatic Status: Acute Assessment and Plan: status post surgery seen by orthopedic surgeon and further recommendation to follow (3) Elevated troponin: Code(s): R77.8 - Other specified abnormalities of plasma proteins Status: Acute Assessment and Plan: patient is seen by Cardiology plan is above (4) Hypertension: Code(s): I10 - Essential (primary) hypertension Status: Acute Assessment and Plan: will continue home regimen and monitor Subjective Date/time seen: 05/05/20 15:04 patient is 79-year-old status post on 05/04 right shoulder rotator cuff Reverse total shoulder arthroplasty. Bicep tenodesis.surgery, early this morning patient developed chest chest pain which was relieved by sublingual nitroglycerin, patient tropes are elevated patient was placed on heparin drip and transferred to IMU, this morning patient was seen by Cardiology chest pain had improved tropes were trending up and cardiology's recommend patient will benefit further evaluation with cardiac catheterization, and further recommendation to follow. Review of Systems Review of Systems: All systems reviewed & are unremarkable except as noted in HPI and below Exam Narrative: Exam Narrative: Patient is comfortable, NAD HEENT: eyes are clear and none icteric LUNGS:CTA HEART: RR S1S2 ABD: BS+, Soft and nontender Lower extremities: no edema MS: right shoulder in surgical dressing SKIN: nonjaundiced Neuro: grossly intact. Objective Data Vital Signs Vital Signs: Vital Signs - 24 hr 05/04/20 17:00 05/04/20 20:37 05/04/20 21:45 Temperature 98.8 F 98.3 F Pulse Rate 60 68 64 Respiratory Rate 16 16 Blood Pressure 138/70 135/71 Pulse Oximetry 98 96 05/05/20 00:00 05/05/20 00:05 05/05/20 00:10 Temperature Pulse Rate Respiratory Rate Blood Pressure 154/76 H 175/80 H 123/76 Pulse Oximetry 05/05/20 00:15 05/05/20 01:09 05/05/20 04:00 Temperature Pulse Rate 87 66 Respiratory Rate Blood Pressure 124/67 Pulse Oximetry 05/05/20 04:35 05/05/20 06:00 05/05/20 08:00 Temperature 97.4 F L Pulse Rate 66 83 64 Respiratory Rate 20 Blood Pressure 144/70 H Pulse Oximetry 96 05/05/20 08:30 05/05/20 08:39 05/05/20 10:00 Temperature 97.6 F Pulse Rate 59 L 60 60 Respiratory Rate 23 H Blood Pressure 139/62 Pulse Oximetry 98 05/05/20 12:00 05/05/20 12:39 05/05/20 14:00 Temperature 97.6 F Pulse Rate 62 59 L 59 L Respiratory Rate
--- NOTE | 2020-05-05 17:49 | PM.PNORT ---
Progress Note: A&P Assessment and Plan (1) Rotator cuff tear, right: Qualifiers: Rotator cuff tear extent: unspecified tear extent Rotator cuff tear trauma status: nontraumatic Qualified Code(s): M75.101 - Unspecified rotator cuff tear or rupture of right shoulder, not specified as traumatic Code(s): M75.101 - Unspecified rotator cuff tear or rupture of right shoulder, not specified as traumatic Status: Acute (2) Non-ST elevation myocardial infarction (NSTEMI): Code(s): I21.4 - Non-ST elevation (NSTEMI) myocardial infarction Status: Acute Assessment and Plan: Postop day 1 status post reversed right total shoulder arthroplasty for large massive rotator cuff tear. He had a myocardial infarction yesterday. He feels reasonably well today. The shoulder is relatively asymptomatic. He will be having a cardiac catheterization tomorrow. Appreciate the hospitalist and wine cellar stock clerk care. Subjective Subjective Date/Time Seen: 05/05/20 17:49 Interval history: Comfortable. Chest pain overnight. Right shoulder tolerating therapy. No numbness, tingling or other symptoms. Exam Narrative: Exam Narrative: Alert oriented. No distress. Dressing intact. No significant swelling. No hemarthrosis or ecchymosis. 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 Light touch sensation normal. Deltoid muscle fires. Objective Data Vital Signs Vital Signs: Vital Signs - 24 hr 05/04/20 20:37 05/04/20 21:45 05/05/20 00:00 Temperature 36.8 C Pulse Rate 68 64 Respiratory Rate 16 Blood Pressure 135/71 154/76 H Pulse Oximetry 96 05/05/20 00:05 05/05/20 00:10 05/05/20 00:15 Temperature Pulse Rate Respiratory Rate Blood Pressure 175/80 H 123/76 124/67 Pulse Oximetry 05/05/20 01:09 05/05/20 04:00 05/05/20 04:35 Temperature 36.3 C L Pulse Rate 87 66 66 Respiratory Rate 20 Blood Pressure 144/70 H Pulse Oximetry 96 05/05/20 06:00 05/05/20 08:00 05/05/20 08:30 Temperature Pulse Rate 83 64 59 L Respiratory Rate Blood Pressure Pulse Oximetry 05/05/20 08:39 05/05/20 10:00 05/05/20 12:00 Temperature 36.4 C Pulse Rate 60 60 62 Respiratory Rate 23 H Blood Pressure 139/62 Pulse Oximetry 98 05/05/20 12:39 05/05/20 14:00 05/05/20 17:23 Temperature 36.4 C 36.6 C Pulse Rate 59 L 59 L 59 L Respiratory Rate 20 24 H Blood Pressure 127/65 137/77 Pulse Oximetry 99 95 Intake/Output Intake/Output: Intake & Output 05/02/20 05/03/20 05/04/20 05/05/20 23:59 23:59 23:59 23:59 Intake Total 1890 1180 Output Total 300 1150 Balance 1590 30 Meds/Results Medications: Active Medications Generic Name Dose Route Start Last Admin Trade Name Freq PRN Reason Stop Dose Admin Aspirin 81 mg 05/04/20 17:00 05/05/20 17:31 Aspirin 81 Mg Enteric Tablet PO 81 mg BID WILNER Administration Cyclobenzaprine HCl 10 mg 05/04/20 10:56 Cyclobenzaprine Hcl 10 Mg Tablet PO Q8H PRN Muscle Spasm Docusate Sodium 100 mg 05/04/20 21:00 05/05/20 08:31 Docusate Sodium 100 Mg Capsule PO 100 mg Q12HR WILNER Administration Fluticasone Propionate 1 spray 05/04/20 21:00 05/05/20 08:31 Fluticasone Propionate 0.05% Na Spr 16 Gm Btl (*Bkc) NASAL 1 spray Q12HR WILNER Administration Heparin Sodium (Porcine) 4,000 units 05/05/20 05:29 05/05/20 15:40 Heparin Sodium 5,000 Units/Ml Vial IV PUSH 4,000 units PRN PRN Administration aPTT less than 55 seconds Heparin Sodium (Porcine) 4,000 units 05/05/20 05:29 Heparin Sodium 5,000 Units/Ml Vial IV PUSH PRN PRN aPTT 55 - 70 seconds Heparin Sodium/Dextrose 25,000 units in 250 mls @ 14 mls/hr 05/05/20 07:45 05/05/20 15:44 Heparin Sodium/D5w 100 Units/Ml IV CONT 1,400 units/hr .[id number] WILNER 14 mls/hr Titration Protocol 1,400 UNITS/HR Loratadine 10 mg 05/05/20 09:00 05/05/20 08:26 Loratadine 10 Mg Tablet PO 10 mg QAM [facility]
[2020-05-05] MEDS: oxyCODONE HCL (*CRX) 5 MG TAB IR 10 MG PO (20:45)
[2020-05-05 22:03] LABS: Partial Thromboplastin Time 55.6 SECONDS (22.3-36.8)
[2020-05-06] VITALS (21 sets, daily range): BP systolic 130–161; BP diastolic 60–111; PULSE 62–120; RESP 15–28; TEMP 36.4–37.2; O2SAT 95–100
[2020-05-06] MEDS: HEPARIN SOD/D5W 100 UNITS/ML 25,000 UNITS/250 ML BAG 16 UNITS IV CONT (02:00)
[2020-05-06 04:48] LABS: Basophils Percent Auto 0.5 % (0.2-1.2); Eosinophils Absolute Auto 0.1 K/mm3 (0-0.3); Eosinophils Percent Auto 1.7 % (0-4.4); Hematocrit 40.8 % (42.0-52.0); Hemoglobin 13.7 g/dL (14.0-18.0); Immature Granulocyte Absolute 0.05 K/mm3 (0.00-0.031); Immature Granulocyte Percent A 0.6 % (0-0.5); Lymphocytes Absolute Auto 1.38 K/mm3 (0.9-3.2); Lymphocytes Percent Auto 16.4 % (18.3-44.2); Mean Corpuscular HGB Conc 33.6 g/dl (32-36); Mean Corpuscular Hemoglobin 29.1 pg (26-34); Mean Corpuscular Volume 86.8 fl (80-100); Mean Platelet Volume 10.3 fl (7.4-10.4); Monocytes Absolute Auto 1.3 K/mm3 (0.1-0.6); Monocytes Percent Auto 14.9 % (2.6-8.5); Neutrophils Absolute Auto 5.5 K/mm3 (1.3-6.7); Neutrophils Percent Auto 65.9 % (45.5-73.1); Platelet Count Result 182 k/mm3 (150-375); Red Cell Distribution Width 13.2 % (11.5-14.5); White Blood Count 8.4 K/mm3 (4.5-10.0)
[2020-05-06 04:58] LABS: Partial Thromboplastin Time 74.5 SECONDS (22.3-36.8)
[2020-05-06 05:07] LABS: Blood Urea Nitrogen 18 mg/dL (9-20); Calcium 8.2 mg/dL (8.4-10.2); Carbon Dioxide 27 mmol/L (22-30); Chloride 105 mmol/L (98-107); Estimated CRCL calculation 77 ml/min; Estimated Glomerular Filt Rate > 60; Glucose 133 mg/dL (75-110); Potassium 3.8 mmol/L (3.4-5.0)
[2020-05-06 05:24] LABS: Anion Gap 5 mmol/L (8-16); Sodium 137 mmol/L (137-145)
[2020-05-06 10:42] LABS: Partial Thromboplastin Time 55.9 SECONDS (22.3-36.8)
[2020-05-06] MEDS: ASPIRIN 81 MG ENTERIC TABLET PO (10:42)
[2020-05-06] MEDS: METOPROLOL TARTRATE 25 MG TABLET PO (10:42)
[2020-05-06] MEDS: LORATADINE 10 MG TABLET PO (10:42)
[2020-05-06] MEDS: MULTIVITAMINS THERAPEUTIC TAB (*BKC) 1 TABLET PO (10:42)
[2020-05-06] MEDS: FLUTICASONE PROPIONATE 0.05% NA SPR 16 GM BTL (*BKC) 1 SPRAY NASAL (10:43)
[2020-05-06] MEDS: DOCUSATE SODIUM 100 MG CAPSULE PO (10:44)
[2020-05-06 13:09] LABS: Activated Clotting Time 120 sec (74-137)
--- NOTE | 2020-05-06 13:19 | WPDMODSED ---
Moderate Sedation Note-Pt Data Patient Data Allergies Allergy/AdvReac Type Severity Reaction Status Date / Time No Known Allergies Allergy Verified 05/04/20 16:58 Home Medications Medication Instructions Recorded Confirmed Type aspirin 81 mg tablet,delayed 81 mg PO DAILY 12/31/19 05/04/20 History release cetirizine 10 mg tablet 5 mg PO DAILY 12/31/19 05/04/20 History clopidogrel 75 mg tablet 75 mg PO DAILY 12/31/19 05/04/20 History metoprolol tartrate 25 mg tablet 25 mg PO BID 12/31/19 05/04/20 History multivitamin 1 cap PO DAILY 12/31/19 05/04/20 History fluticasone propionate [Flonase 1 spray INTRANASAL BID 03/10/20 05/04/20 History Allergy Relief] Current Medications: Active Medications Aspirin (Aspirin 81 Mg Enteric Tablet) 81 mg PO BID [facility] Last Admin: 05/06/20 10:42 Dose: 81 mg Documented by: Cyclobenzaprine HCl (Cyclobenzaprine Hcl 10 Mg Tablet) 10 mg PO Q8H PRN PRN Reason: Muscle Spasm Docusate Sodium (Docusate Sodium 100 Mg Capsule) 100 mg PO Q12HR [facility] Last Admin: 05/06/20 10:44 Dose: 100 mg Documented by: Fluticasone Propionate (Fluticasone Propionate 0.05% Na Spr 16 Gm Btl (*Bkc)) 1 spray NASAL Q12HR [facility] Last Admin: 05/06/20 10:43 Dose: 1 spray Documented by: Heparin Sodium (Porcine) (Heparin Sodium 5,000 Units/Ml Vial) 4,000 units IV PUSH PRN PRN PRN Reason: aPTT less than 55 seconds Last Admin: 05/05/20 22:35 Dose: 4,000 units Documented by: Heparin Sodium (Porcine) (Heparin Sodium 5,000 Units/Ml Vial) 4,000 units IV PUSH PRN PRN PRN Reason: aPTT 55 - 70 seconds Heparin Sodium/Dextrose (Heparin Sodium/D5w 100 Units/Ml) 25,000 units in 250 mls @ 16 mls/hr IV CONT .[id number] [facility]; Protocol Last Admin: 05/06/20 02:00 Dose: 1,600 units/hr, 16 mls/hr Documented by: Loratadine (Loratadine 10 Mg Tablet) 10 mg PO QAM [facility] Last Admin: 05/06/20 10:42 Dose: 10 mg Documented by: Magnesium Hydroxide (Magnesium Hydroxide Susp 30 Ml Udc) 30 ml PO BID PRN PRN Reason: Constipation Metoclopramide HCl (Metoclopramide Hcl Inj 10 Mg/2 Ml Vial) 10 mg IV PUSH Q6HR PRN PRN Reason: Nausea Metoprolol Tartrate (Metoprolol Tartrate 25 Mg Tablet) 25 mg PO Q12HR [facility] Last Admin: 05/06/20 10:42 Dose: 25 mg Documented by: Multivitamins Therapeutic (Multivitamins Therapeutic Tab (*Bkc)) 1 tablet PO DAILY [facility] Last Admin: 05/06/20 10:42 Dose: 1 tablet Documented by: Nitroglycerin (Nitroglycerin Sl 0.4 Mg Tablet) 0.4 mg SUBLINGUAL Q5MIN PRN PRN Reason: Chest Pain Oxycodone HCl (Oxycodone Hcl (*Crx) 5 Mg Tab Ir) 10 mg PO Q4H PRN PRN Reason: Pain Rated 7-10 Last Admin: 05/05/20 20:45 Dose: 10 mg Documented by: Oxycodone HCl (Oxycodone Hcl (*Crx) 5 Mg Tab Ir) 5 mg PO Q4H PRN PRN Reason: Pain Rated 4-6 Sedation/Anesthesia: No previous sedation/anesthesia problems (including family history). [facility] Past Medical History Medical History CAD (coronary artery disease) 4 coronary stents Deviated septum Enlarged prostate Heart disease Hypertension IBS (irritable bowel syndrome) Obesity Pilonidal cyst Wrist arthritis Surgical History Surgical History H/O heart artery stent 4 coronary stents History of appendectomy Status post bilateral knee replacements Family History Family History Other Carcinoma of colon Family history of arthritis Family history of cardiovascular disease Social History Social History Smoking status: Former smoker Additional smoking assessment comments: STATES SMOKED 1 1/2PK/DAY/8YRS QUIT 1969 Alcohol intake: never Substance use: never Living arrangements: with family Gender identity (if verbalized by the patient): Male Spiritual care concerns: No Mod Sed Physical Exam Physical Exam Pre Procedural Exam: Normal:
--- NOTE | 2020-05-06 13:20 | PM.PNCARD ---
Progress Note: A&P Assessment and Plan (1) Elevated troponin: Code(s): R77.8 - Other specified abnormalities of plasma proteins Status: Acute Assessment and Plan: likely due to non ST elevation myocardial function, seems to be showing more elevation now, currently on heparin and aspirin, cardiac catheterization was done today showed severe three-vessel coronary disease with normal left ventricular systolic function. He has multiple lesions in LAD, but 1 is severe and seems to be ulcerative plaque. He will need coronary bypass surgery. Will make arrangements for transfer to [facility] for that, meanwhile continue with aspirin and heparin (2) CAD (coronary artery disease): Qualifiers: Coronary Disease-Associated Artery/Lesion type: [place] artery [place] vs. transplanted heart: [place] heart Associated angina: without angina Qualified Code(s): I25.10 - Atherosclerotic heart disease of [place] coronary artery without angina pectoris Code(s): I25.10 - Atherosclerotic heart disease of [place] coronary artery without angina pectoris Status: Acute (3) Rotator cuff tear, right: Qualifiers: Rotator cuff tear extent: unspecified tear extent Rotator cuff tear trauma status: nontraumatic Qualified Code(s): M75.101 - Unspecified rotator cuff tear or rupture of right shoulder, not specified as traumatic Code(s): M75.101 - Unspecified rotator cuff tear or rupture of right shoulder, not specified as traumatic Status: Acute (4) Hypertension: Code(s): I10 - Essential (primary) hypertension Status: Acute (5) Non-ST elevation myocardial infarction (NSTEMI): Code(s): I21.4 - Non-ST elevation (NSTEMI) myocardial infarction Status: Acute Assessment and Plan: cardiac catheterization revealing 3 vessel coronary disease he will need to go for bypass surgery Subjective Date/time seen: 05/06/20 13:20 He feels okay today, no more chest pain, but overall feels fatigued and mild shortness of breath. Cardiac catheterization done today showed three-vessel coronary disease Exam Narrative: Exam Narrative: Awake alert oriented x3 not in acute distress Neck is supple no obvious JVD, no carotid bruit Chest: Good air entry bilaterally, lungs are clear to auscultation and percussion bilaterally Cardiovascular: Regular rate and rhythm, 2/6 systolic murmur noted left sternal border Abdomen: Soft nontender bowel sounds positive Extremities: No edema has good pulses distally bilaterally Objective Data Vital Signs Vital Signs: Vital Signs - 24 hr 05/05/20 14:00 05/05/20 16:00 05/05/20 17:23 Temperature 36.6 C Pulse Rate 59 L 62 59 L Respiratory Rate 24 H Blood Pressure 137/77 Pulse Oximetry 95 05/05/20 18:00 05/05/20 19:24 05/05/20 20:00 Temperature 36.7 C Pulse Rate 60 65 63 Respiratory Rate 24 H 24 H Blood Pressure 139/77 Pulse Oximetry 96 96 05/05/20 20:41 05/05/20 22:00 05/05/20 23:51 Temperature 37.2 C Pulse Rate 63 76 75 Respiratory Rate 20 Blood Pressure 158/79 H Pulse Oximetry 97 05/06/20 00:00 05/06/20 02:00 05/06/20 03:58 Temperature 36.5 C Pulse Rate 76 71 75 Respiratory Rate 20 22 H Blood Pressure 140/60 Pulse Oximetry 97 95 05/06/20 04:00 05/06/20 06:00 05/06/20 08:00 Temperature 36.4 C L Pulse Rate 62 63 66 Respiratory Rate 22 H 16 Blood Pressure 136/75 Pulse Oximetry 95 96 05/06/20 10:42 05/06/20 12:00 Temperature 36.6 C Pulse Rate 75 63 Respiratory Rate 20 Blood Pressure 136/79 Pulse Oximetry 95 Intake/Output Intake/Output: Intake & Output 05/03/20 05/04/20 05/05/20 05/06/20 23:59 23:59 23:59 23:59 Intake Total 1890 1300 250 Output Total 300 1800 Balance 1590 -500 250 Meds/Results Medications: Active Medications Generic Name Dose Route Start Last Admin Trade Name Freq PRN Reason Stop Dose Admin Aspirin 81 mg 05/04/20 17:00 05/06/20
--- NOTE | 2020-05-06 13:31 | P.PCNCC_ITS ---
Cardiac Cath Procedure Note Date of procedure:: 05/06/20 Performing physician:: Cecilio Munguia MD Procedure: 1. Left heart catheterization, selective coronary angiogram. 2. Left ventricular angiogram. 3. Conscious sedation. Test Car Driver: Dr. Cecilio Munguia Complications: None. Sedation: Conscious sedation, local anesthesia, using 2 mg of Versed said, 25 mcg of fentanyl, and using 1% lidocaine for local anesthesia. starting time is 12:55 p.m. in the time is 1:20 p.m. History: 79 years old gentleman with history of known coronary disease previous angioplasty stent placement, was admitted to the hospital for elective shoulder surgery, noted to have 1 episode of chest pain subsequently had elevated troponin indicative of non ST elevation myocardial infarction, after further stabilization was brought to the [facility] for elective cardiac catheterization for definitive diagnosis of coronary disease Technique: After informed consent was obtained from patient, was brought to the [facility], put in the [facility] [employer] table, prepped and draped in usual sterile fashion. Five [place] sheath was inserted into the right common femoral artery, through the sheath 5 [place] JL4 catheter inserted, advanced to the left coronary artery, left coronary artery angiogram was obtained. The catheter was exchanged over guidewire into a 5 [place] JR4 catheter, advanced to the right coronary artery, right coronary artery angiogram was obtained. The catheter then was exchanged over guidewire into this 5 [place] pigtail catheter, advanced to left ventricle, left ventricular angiogram was obtained. The catheter then was pulled, the sheath was pulled applying manual pressure for arterial hemostasis. Patient tolerated the procedure no complication, taken from the [facility] to his room in stable condition stable vital signs. Hemodynamics: aortic pressure 144/60 . LV pressure 144/04 with LVEDP of 18 mmHg. Heart rate is 120 during the procedure he was noted to have atrial fibrillation with rapid ventricular response Angiographic findings: Left main: Medium size artery no significant disease or stenosis. Lad medium size artery showed proximal LAD ulcerative plaque, with 90% disease followed by multiple lesions of 75% to 90%, 1st diagonal branch shows ostial 90% disease. Distally seems to be a good target for revascularization Left circumflex artery, medium size artery, showed proximal 75% disease, 1st obtuse marginal shoulder ostial 75% disease RCA: Dominant vessel, showed mid RCA significant irregularity with a 40-50% disease. the stents are patent, but there was distal PDA and PLV disease about 75% disease LV: Normal size left ventricle with normal left ventricular systolic function. Summary: 3 vessels complex coronary artery disease, with normal left ventricular systolic function, recent non ST elevation myocardial infarction Recommendation: due to the complexity of the lesions he would need to have bypass surgery, will arrange for transfer to [facility] for coronary bypass surgery
--- NOTE | 2020-05-06 13:36 | PM.TDS ---
Transfer Discharge Sum: Prov Provider Date of admission: 05/04/20 10:56 Primary care physician: Lm Westfall, MMarlen. Admitting clinician: Leonidas Flores MD Consults: 05/05/20 Consult to Physician Routine Comment: Consulting Provider: Cecilio Munguia teacher physically impaired/MD group to consult: Reason for consultation: elevated troponin post-op shoulder, history of CAD status post 4 stents Has provider been notified: Yes Consult to Physician Routine Comment: Consulting Provider: Blanche Styles teacher physically impaired/MD group to consult: Hospitalist Reason for consultation: Medical management Has provider been notified: Yes DS: Admitting Diagnosis Admitting Diagnosis Admitting Diagnosis: Right Rotator Cuff Tear DS: Discharge Diagnosis Discharge Diagnosis (1) CAD (coronary artery disease): Qualifiers: Associated angina: without angina Coronary Disease-Associated Artery/Lesion type: [place] artery [place] vs. transplanted heart: [place] heart Qualified Code(s): I25.10 - Atherosclerotic heart disease of [place] coronary artery without angina pectoris Code(s): I25.10 - Atherosclerotic heart disease of [place] coronary artery without angina pectoris Status: Acute Assessment and Plan: Patient is 79-year-old status post on 05/04 right shoulder rotator cuff Reverse total shoulder arthroplasty. Bicep tenodesis surgery, early this morning patient developed chest chest pain which was relieved by sublingual nitroglycerin, patient troponin was elevated patient was placed on heparin drip and transferred to IMU. Pt had heart cath which showed severe three-vessel coronary disease with normal left ventricular systolic function. He has multiple lesions in LAD, but 1 is severe and seems to be ulcerative plaque. He will need coronary bypass surgery. And will urgent transfer to [facility] for CABG. Family informed about transfer. (2) Rotator cuff tear, right: Qualifiers: Rotator cuff tear extent: unspecified tear extent Rotator cuff tear trauma status: nontraumatic Qualified Code(s): M75.101 - Unspecified rotator cuff tear or rupture of right shoulder, not specified as traumatic Code(s): M75.101 - Unspecified rotator cuff tear or rupture of right shoulder, not specified as traumatic Status: Acute Assessment and Plan: Status post surgery seen by orthopedic surgeon (3) Elevated troponin: Code(s): R77.8 - Other specified abnormalities of plasma proteins Status: Acute Assessment and Plan: Patient is seen by Cardiology plan is above (4) Hypertension: Code(s): I10 - Essential (primary) hypertension Status: Acute Assessment and Plan: Continue home regimen Transfer Discharge Sum: Med Medications Active and Home Medications: Home Medications aspirin 81 mg tablet,delayed release 81 mg PO DAILY 12/31/19 [History Confirmed 05/04/20] cetirizine 10 mg tablet 5 mg PO DAILY 12/31/19 [History Confirmed 05/04/20] clopidogrel 75 mg tablet 75 mg PO DAILY 12/31/19 [History Confirmed 05/04/20] metoprolol tartrate 25 mg tablet 25 mg PO BID 12/31/19 [History Confirmed 05/04/20] multivitamin 1 cap PO DAILY 12/31/19 [History Confirmed 05/04/20] fluticasone propionate [Flonase Allergy Relief] 1 spray INTRANASAL BID 03/10/20 [History Confirmed 05/04/20] Active Medications Aspirin (Aspirin 81 Mg Enteric Tablet) 81 mg PO BID [facility] Last Admin: 05/06/20 10:42 Dose: 81 mg Documented by: Cyclobenzaprine HCl (Cyclobenzaprine Hcl 10 Mg Tablet) 10 mg PO Q8H PRN PRN Reason: Muscle Spasm Docusate Sodium (Docusate Sodium 100 Mg Capsule) 100 mg PO Q12HR [facility] Last Admin: 05/06/20 10:44 Dose: 100 mg Documented by: Fluticasone Propionate (Fluticasone Propionate 0.05% Na Spr 16 Gm Btl (*Bkc)) 1 spray NASAL Q12HR [facility] Last Admin: 05/06/20 10:43 Dose: 1 spray Documented by: Heparin Sodium (Porcine) (Heparin Sodium 5,000 Units/Ml Vial) 4,000 units IV PU
--- NOTE | 2020-05-06 14:09 | PCOTNOTE ---
Patient having Cardiac Cath procedure. Will attempt OT evaluation when medically appropriate.
--- NOTE | 2020-05-06 14:20 | PCPTNOTE ---
Attempted to see patient for PT this afternoon, however unable to see patient due to patient being transferred out to another hospital.
--- NOTE | 2020-05-06 16:36 | SUR.PHASEII ---
Patient transferred to EMS stretcher for transfer to [facility].Report and chart given to EMS. Right groin site WNL,VSS.
== END 2020-05-06 16:43 | disposition short-term general hospital (02) | DRG 483 ==
LOC: ANH2MED 11:30 → ANHIMU 05-05 10:27 → ANH2MED 05-10 13:42 → ANHIMU 05-10 13:42
PROVIDERS: Family Medicine; Specialist; Student in an Organized Health Care Education/Training Program; Admitting Provider Orthopaedic Surgery; PCP Family Medicine; Visit Provider Family Medicine
PROC: 0RRJ00Z Replacement of Right Shoulder Joint with Reverse Ball and Socket Synthetic Substitute, Open Approach (ICD-10-PCS; CPT 23472; principal; 2020-05-04 07:30)
PROC: 4A023N7 Measurement of Cardiac Sampling and Pressure, Left Heart, Percutaneous Approach (ICD-10-PCS; CPT 93452; principal; 2020-05-06 13:00)
DX: M75.121 Complete rotator cuff tear or rupture of right shoulder, not specified as traumatic (principal); I21.4 Non-ST elevation (NSTEMI) myocardial infarction; I97.191 Other postprocedural cardiac functional disturbances following other surgery; I97.791 Other intraoperative cardiac functional disturbances during other surgery; I48.91 Unspecified atrial fibrillation; I25.10 Atherosclerotic heart disease of native coronary artery without angina pectoris; I10 Essential (primary) hypertension; K58.9 Irritable bowel syndrome, unspecified; E66.9 Obesity, unspecified; Z96.653 Presence of artificial knee joint, bilateral; Z68.33 Body mass index [BMI] 33.0-33.9, adult; Z95.5 Presence of coronary angioplasty implant and graft; Z79.82 Long term (current) use of aspirin; Z87.891 Personal history of nicotine dependence
CPT/HCPCS: 36415; 73030; 80048; 80061; 82550; 82553; 83735; 84484; 85025; 85027; 85610; 85730; 87635; 93005; 93306; 93458; 97110; 97161; 97530; A4565; A9270; C1776; C1887; C1894; C9803; J0131; J0171; J0461; J0690; J1100; J1644; J1885; J2250; J2270; J2370; J2405; J2704; J2795; J3010; J7030; J7040; J7120; U0003

== ENCOUNTER 2020-07-02 01:39 | Day surgery (SDC) | payer MEDICARE, SELFPAY ==
[2020-07-01 11:28] VITALS: BMI 31.9
--- NOTE | ~2020-07-02 | XR_ITS ---
EXAMINATION: XR shoulder RT min 2V DATE: 07/02/2020 12:35 INDICATION: Right shoulder arthroplasty TECHNIQUE: 3 views right shoulder. 22 seconds of fluoroscopy. FINDINGS: There is a right total shoulder arthroplasty in expected position. There are postsurgical c hanges consistent with recent surgery. IMPRESSION: 1. Recent right total shoulder arthroplasty. Reviewed, dictated and finalized at location A. PUNCTURIST
--- NOTE | 2020-07-02 09:33 | ECG_ITS ---
Measurements Intervals [place] Rate: 75 P: 13 NV: 180 QRS: 28 QRSD: 83 T: 56 QT: 381 QTc: 428 Interpretive Statements SINUS RHYTHM VENTRICULAR PREMATURE COMPLEX BASELINE ARTIFACT- I, III, AVL BORDERLINE ECG Electronically Signed On 07-02-2020 11:10:48 COLLISION REPAIRER by Martín Cuellar D.O.
[2020-07-02 10:09] VITALS: BP 130/81; PULSE 91; RESP 20; TEMP 36.6; O2SAT 99
[2020-07-02] MEDS: ACETAMINOPHEN 500 MG TABLET 1000 MG PO (10:33)
[2020-07-02] MEDS: LACTATED RINGERS 1,000 ML 30 ML IV CONT (10:40)
[2020-07-02] MEDS: KETOROLAC 15 MG/ML VIAL (*BKC) IV PUSH (10:45)
[2020-07-02 10:50] LABS: Hematocrit 31.4 % (42.0-52.0); Hemoglobin 10.2 g/dL (14.0-18.0)
[2020-07-02 10:59] LABS: INR 1.4; Prothrombin Time 17.6 Seconds (11.1-14.7)
--- NOTE | 2020-07-02 11:00 | WPDANESEPPF ---
Anes - Initial Pre Proc Eval Procedure: Operation Date: 07/02/20 12:00 Proposed Procedures p Closed Reduction Right Shoulder, Proceed As Indicated - Lenoidas Flores MD Date/Time: 07/02/20 11:00 Surgeon: Leonidas Flores MD Pre Op Diagnosis: s/p total shoulder Patient Data Age: 79 Gender: M Height: 1.91 m Weight: 115.9 kg Allergies Allergy/AdvReac Type Severity Reaction Status Date / Time No Known Allergies Allergy Verified 07/01/20 11:30 Home Medications Medication Instructions Recorded Confirmed Type aspirin 81 mg tablet,delayed 81 mg PO DAILY 12/31/19 07/01/20 History release cetirizine 10 mg tablet 5 mg PO DAILY 12/31/19 07/01/20 History fluticasone propionate [Flonase 1 spray INTRANASAL BID 03/10/20 07/01/20 History Allergy Relief] amiodarone 200 mg PO DAILY 07/01/20 07/01/20 History apixaban [Eliquis] 2.5 mg PO BID 07/01/20 07/01/20 History ferrous sulfate 325 mg PO BID 07/01/20 07/01/20 History midodrine 10 mg TID 07/01/20 07/01/20 History pantoprazole 40 mg PO QAM 07/01/20 07/01/20 History polyethylene glycol 3350 [Miralax] 17 g PO DAILY 07/01/20 07/01/20 History rosuvastatin 20 mg PO HS 07/01/20 07/01/20 History sennosides-docusate sodium 2 tab-cap PO BID 07/01/20 07/01/20 History [Senna-S] tamsulosin 0.4 mg PO HS 07/01/20 07/01/20 History Laboratory Tests 07/02/20 07/02/20 07/02/20 10:35 10:35 10:35 Hgb 10.2 g/dL L D g/dL (14.0-18.0) Hct 31.4 % L % (42.0-52.0) PT Pending INR Pending APTT Pending Sodium Pending Potassium Pending Chloride Pending Carbon Dioxide Pending Anion Gap Pending BUN Pending Creatinine Pending Estim Creat Clear Calc Pending Estimated GFR Pending Glucose Pending Calcium Pending Patient hx anesthesia problems: none Family hx anesthesia problems: none PMFSH Past Medical History Medical History (Updated 07/02/20 @ 11:00 by Augusto Heath DO) CAD (coronary artery disease) 4 coronary stents Deviated septum Dialysis patient Enlarged prostate Heart disease Hypertension IBS (irritable bowel syndrome) Obesity Pilonidal cyst Wrist arthritis Surgical History Surgical History (Updated 07/01/20 @ 11:15 by Leonidas Flores MD) H/O heart artery stent 4 coronary stents History of appendectomy Status post bilateral knee replacements Status post coronary artery bypass graft Status post reverse total arthroplasty of right shoulder Family History Family History Other Carcinoma of colon Family history of arthritis Family history of cardiovascular disease Social History Social History Smoking status: Former smoker Additional smoking assessment comments: STATES SMOKED 1 1/2PK/DAY/8YRS QUIT 1969 Alcohol intake: never Substance use: never Substance use type: does not use Gender identity (if verbalized by the patient): Male Spiritual care concerns: No Anes - Eval Final PreProcedure Day of Procedure 07/02/20 11:00 Patient weight: obese Heart: regular rate and rhythm Lungs: clear to auscultation and normal air movement Airway: Mallampati scale class II Neurological: alert and oriented Last oral intake: >/= 8 hours ASA classification: IV Emergent: no Anesthetic plan: proceed Anesthesia type and monitoring: general and standard monitoring Informed Consent: The patient's anesthetic plan and its attendant risks and benefits were discussed with the patient/family/POA. Questions were solicited and answers provided to the satisfaction of the patient/family/POA.
[2020-07-02 11:01] LABS: Anion Gap 4 mmol/L (8-16); Blood Urea Nitrogen 24 mg/dL (9-20); Calcium 9.2 mg/dL (8.4-10.2); Carbon Dioxide 32 mmol/L (22-30); Chloride 100 mmol/L (98-107); Estimated CRCL calculation 22 ml/min; Estimated Glomerular Filt Rate 17; Glucose 104 mg/dL (75-110); Potassium 3.7 mmol/L (3.4-5.0); Sodium 136 mmol/L (137-145)
--- NOTE | 2020-07-02 11:44 | WPDHPUPDATE1 ---
History and Physical Update Update Date/Time: 07/02/20 11:44 History and Physical has been reviewed, including an updated exam of the patient. There are NO changes in the patient's condition. Risks, benefits, and alternatives have been discussed and questions answered. Patient agrees to proceed with procedure.
[2020-07-02] MEDS: ceFAZolin 2 GM/D5W 50 ML 2 GM/50 ML BAG IVPB (12:05)
[2020-07-02 12:31] VITALS: BP 124/74; PULSE 71; RESP 12; O2SAT 100
[2020-07-02 13:00] VITALS: BP 122/76; PULSE 70; RESP 18; O2SAT 100
[2020-07-02 13:30] VITALS: BP 129/69; PULSE 67; RESP 18; O2SAT 100
[2020-07-02 14:00] VITALS: BP 118/74; PULSE 67; RESP 18; O2SAT 100
--- NOTE | 2020-07-02 16:51 | PM.PROC ---
Procedure Note - Detailed Date of procedure: 07/02/20 Pre-op diagnosis: s/p total shoulder Right shoulder dislocation status post reverse total shoulder arthroplasty. Post-op diagnosis: same Procedure performed: Closed reduction right reverse total shoulder Anesthesia: other Surgeon: Leonidas Flores MD Complications: No immediate complications Condition: stable Disposition: PACU Findings: Patient was sedated with propofol in the operating room. Gentle longitudinal traction was applied to the shoulder gradually. Deltoid muscle relaxed and the shoulder was gently manipulated with internal and external rotation. Slight abduction and forward elevation was applied. Shoulder slipped into the reduced position gently. Range of motion was assessed. Internal rotation was to the abdomen, external rotation was 60?. Elevation was 120?. These motions were all easily performed, without crepitus. There was no subluxation or instability. Gentle manipulation maneuvers were performed to assess for stability. Abduction with upward pressure on the arm did not create any subluxation. Likewise, proximal pressure on the elbow with the arm at the side did not cause any superior subluxation. The patient awakened in good spirits. He was stable. Gentle motion of the arm was well tolerated. His distal neurologic status remained normal. The anterior deltoid showed some signs of attenuation and atrophy lateral to the healed incision; at the location of the anteriorly dislocated humerus. No sign of significant fluid collection nor complete rupture of the muscle.
== END 2020-07-02 14:15 | disposition home or self-care (01) ==
PROVIDERS: Anesthesiology; PCP Family Medicine; Visit Provider Orthopaedic Surgery
PROC: (CPT 23655; principal; 2020-07-02 12:00)
DX: T84.028A Dislocation of other internal joint prosthesis, initial encounter (principal); I25.10 Atherosclerotic heart disease of native coronary artery without angina pectoris; N40.0 Benign prostatic hyperplasia without lower urinary tract symptoms; K58.9 Irritable bowel syndrome, unspecified; M19.039 Primary osteoarthritis, unspecified wrist; I11.9 Hypertensive heart disease without heart failure; I25.2 Old myocardial infarction; Z95.1 Presence of aortocoronary bypass graft; E66.9 Obesity, unspecified; Z68.30 Body mass index [BMI] 30.0-30.9, adult; Z79.01 Long term (current) use of anticoagulants; Z79.82 Long term (current) use of aspirin
CPT/HCPCS: 23655; 36415; 73030; 80048; 81001; 85014; 85018; 85610; 85730; 87077; 87086; 87088; 87186; 93005; A9270; J0690; J1885; J2704; J3010; J7120

== ENCOUNTER 2020-07-02 09:53 | Outpatient (NON) | payer MEDICARE, SELFPAY ==
[2020-07-02 10:24] LABS: Add Urine Microscopic? YES; Appearance Urine Cloudy (Clear); Bacteria Urine Trace /hpf; Bilirubin Urine Negative (Negative); Blood Urine Negative (Negative); Color Urine Yellow (Yellow); Glucose Urine UA Negative (Negative); Ketones Urine Negative (Negative); Leukocyte Esterase Ur 3+ LEU/UL (Negative); Mucus Urine Rare /lpf; Nitrate Urine Negative (Negative); Protein Urine 2+ mg/dL (Negative); Specific Grav Ur 1.013 (1.001-1.035); Squamous Epithelial Cell Urine Rare /hpf (Few); Urobilinogen Urine Negative mg/dL (<2.0); WBC Urine >75 /hpf
== END 2020-07-02 09:54 ==
PROVIDERS: PCP Family Medicine; Visit Provider Family Medicine
DX: Z48.812 Encounter for surgical aftercare following surgery on the circulatory system (principal); I12.0 Hypertensive chronic kidney disease with stage 5 chronic kidney disease or end stage renal disease; I25.10 Atherosclerotic heart disease of native coronary artery without angina pectoris; N18.5 Chronic kidney disease, stage 5; E11.22 Type 2 diabetes mellitus with diabetic chronic kidney disease; N39.0 Urinary tract infection, site not specified
CPT/HCPCS: 81001; 87077; 87086; 87088; 87186

== ENCOUNTER 2020-09-13 09:00 | Outpatient (RCR) | payer MEDICARE, SELFPAY ==
[2020-08-24 08:59] VITALS: BP 160/90; PULSE 67; RESP 16; TEMP 36.4; O2SAT 98
--- NOTE | 2020-08-25 09:43 | PCCPR ---
Kendall called out today, his brother .
--- NOTE | 2020-09-16 09:25 | PCCPR ---
Absent without call or show. LM for Kendall asking he call with an update. He was absent yesterday and today without call or show.
== END 2020-09-23 16:30 | disposition home or self-care (01) ==
LOC: ANHCPREHAB 09:00
PROVIDERS: PCP Family Medicine
DX: Z95.1 Presence of aortocoronary bypass graft (principal)
CPT/HCPCS: 93798

== ENCOUNTER 2023-03-13 15:44 | Emergency (ER) | payer MEDICARE, SELFPAY ==
--- NOTE | ~2023-03-13 | XR_ITS ---
EXAMINATION: XR hip LT 2V w AP pelvis DATE: 03/13/2023 16:30 INDICATION: Left hip pain post fall TECHNIQUE: Anteroposterior view of the pelvis and anteroposterior and frog-leg lateral views of the a ffected hip were obtained. COMPARISON: None. FINDINGS: Alignment is normal. No fracture or suspected avascular necrosis. Mild osteoarthritis at the bilatera l hip and sacroiliac joints. A few atherosclerotic calcifications and phleboliths in the pelvis. IMPRESSION: 1. 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 No acute osseous abnormality. Reviewed, dictated and finalized at location A. IMPRESSION: 1. 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 No acute oss eous abnormality.
[2023-03-13 15:54] VITALS: BP 130/65; PULSE 61; RESP 18; TEMP 36.8; O2SAT 97
--- NOTE | 2023-03-13 16:20 | ED.LOWEXIN ---
HPI - Extremity Injury (Lower) General Chief Complaint: Extremity Injury, Lower Stated Complaint: left hip injury History of Present Illness HPI Narrative: pt is a 82 y/o male, PMHx of CAD, MT, HTN, hyperlipidemia and ESRD, on dialysis, presents to with left hip pain after he missed the last two steps around 0400 this morning at his home, landing on the left side. He denies hitting his head or LOC and he has no neck or back pain. He is on Eliquis. He denies bruising. Pain has increased throughout the day, worse with weight bearing, improved at rest. He has no neck or back pain. He denies any other associated symptoms or modifying factors. Related Data Home Medications Medication Instructions Recorded Confirmed aspirin 81 mg tablet,delayed 81 mg PO DAILY 12/31/19 03/13/23 release (Adult Aspirin Regimen) apixaban 2.5 mg tablet (Eliquis) 2.5 mg PO BID 07/01/20 03/13/23 pantoprazole 40 mg tablet,delayed 40 mg PO QAM 07/01/20 03/13/23 release rosuvastatin 20 mg tablet 20 mg PO HS 07/01/20 03/13/23 sennosides 8.6 mg-docusate sodium 2 tab-cap PO BID 07/01/20 03/13/23 50 mg tablet (Senna-S) calcitriol 0.25 mcg capsule 0.25 mcg PO DAILY 03/13/23 03/13/23 magnesium oxide 400 mg (241.3 mg mg 03/13/23 magnesium) tablet trazodone 50 mg tablet 50 mg PO 03/13/23 Allergies Allergy/AdvReac Type Severity Reaction Status Date / Time No Known Allergies Allergy Verified 09/26/21 09:56 Review of Systems Musculoskeletal: Musculoskeletal: Reports as per HPI [facility] Past Medical History Medical History CAD (coronary artery disease) 4 coronary stents Deviated septum Dialysis patient Elevated troponin Enlarged prostate Heart disease Hypertension Hypertension IBS (irritable bowel syndrome) Obesity Pilonidal cyst Wrist arthritis Surgical History Surgical History (Updated 09/26/21 @ 10:55 by Caitlin Méndez) H/O heart artery stent 4 coronary stents History of appendectomy Status post bilateral knee replacements Status post coronary artery bypass graft Status post reverse total arthroplasty of right shoulder Family History Family History Father Family history of cardiovascular disease Mother Family history of cardiovascular disease Sibling Family history of cardiovascular disease Sibling Family history of cardiovascular disease Sibling Carcinoma of colon Sibling Hypertension Mother Hypertension Sibling Diabetes mellitus Sibling Chronic obstructive pulmonary disease Other Family history of arthritis Social History Social History Smoking packs per day: 1.5 Smoking cigarettes per day: 30.0 Smoking status: Former smoker Tobacco type: cigarettes Second hand tobacco smoke exposure: No Smoking end date: 07/16/1968 Additional smoking assessment comments: worked in [employer] for career Alcohol intake: never Substance use: never Substance use type: does not use Living arrangements: with family Gender identity (if verbalized by the patient): Male Spiritual care concerns: No Exam Const: General: healthy appearing, no acute distress and alert Nutritional Appearance: well nourished Orientation/consciousness: patient oriented x3 Limitations: no limitations HENMT: Head: normal to inspection Ears: external ears normal and TM's normal bilaterally Face/Nose/Sinus: Normal external nose present and Normal nares present Mouth: Yes Normal oral and palatal mucosa present and Yes lip normal Teeth and gingiva: dentition normal Eyes: Conjunctivae: conjunctivae normal Pupils: Equal, round and reactive pupils present EOM: EOMs intact bilaterally Neck: Neck: normal visual inspection, no lymphadenopathy and no meningeal signs Other: no C spine point tenderness, no step offs Chest: Chest palpation &
== END 2023-03-13 16:51 | disposition home or self-care (01) ==
PROVIDERS: Emergency Provider Nurse Practitioner Family; PCP Family Medicine
DX: S70.02XA Contusion of left hip, initial encounter (principal); W10.9XXA Fall (on) (from) unspecified stairs and steps, initial encounter; I25.10 Atherosclerotic heart disease of native coronary artery without angina pectoris; I25.2 Old myocardial infarction; E78.5 Hyperlipidemia, unspecified; I13.11 Hypertensive heart and chronic kidney disease without heart failure, with stage 5 chronic kidney disease, or end stage renal disease; N18.6 End stage renal disease; Z99.2 Dependence on renal dialysis; N40.0 Benign prostatic hyperplasia without lower urinary tract symptoms; E66.9 Obesity, unspecified; Z68.28 Body mass index [BMI] 28.0-28.9, adult; Z95.5 Presence of coronary angioplasty implant and graft; Z96.653 Presence of artificial knee joint, bilateral; Z79.82 Long term (current) use of aspirin; Z79.01 Long term (current) use of anticoagulants
CPT/HCPCS: 73502; 99213; G0463

== ENCOUNTER 2023-05-13 08:14 | Emergency (ER) | payer MEDICARE, SELFPAY ==
--- NOTE | ~2023-05-13 | XR_ITS ---
XR tibia fibula LT 2V DATE: 05/13/2023 08:54 INDICATION: Metal cabinet fell on mid/distal lateral lower leg. Pain and swelling. TECHNIQUE: AP and lateral views COMPARISON: 09/26/2021 left knee FINDINGS: There is soft tissue swelling along the lateral aspect of the mid to lower left lower leg.. No fracture or dislocation of the tibia or fibula is detected. Status post left total knee arthroplasty with patellar resurfacing. Normal alignment at the knee and ankle joints. Very prominent posterior calcaneal enthesopathy. IMPRESSION: Lateral soft tissue swelling of the lower leg No fracture or dislocation Left total knee arthroplasty Very prominent posterior calcaneal enthesopathy Reviewed, dictated and finalized at location A.
[2023-05-13 08:22] VITALS: BP 130/70; PULSE 122; RESP 16; TEMP 36.8; O2SAT 97
--- NOTE | 2023-05-13 08:30 | ED.LOWEXIN ---
HPI - Extremity Injury (Lower) General Chief Complaint: Extremity Injury, Lower Stated Complaint: Left Leg/Ankle Injury Source: patient Mode of arrival: ambulatory Limitations: no limitations History of Present Illness HPI Narrative: 82-year-old male presenting for complaint of bruising and swelling to the left lower leg worsening over the past 9 days after injury. He states on 05/04 he was hanging a metal cabinet, which fell onto the leg causing an abrasion surrounded with large bruised swollen area. At the time he was seen by PCP and prescribed antibiotic, but he inadvertently did not start the course. However, he did complete another antibiotic prescribed by ENT which he began a few days prior to the injury. States the initial swelling and bruising over the abrasion is improving, but site remains tender. Reports swelling from mid calf to the foot, and bruising to the foot and ankle. Pain worse to the lower leg and ankle after sitting and then trying to walk, but after walking a few minutes the pain subsides. Taking Tylenol. Patient is on Eliquis. Scheduled with pcp this week. Related Data Home Medications Medication Instructions Recorded Confirmed aspirin 81 mg tablet,delayed 81 mg PO DAILY 12/31/19 05/13/23 release (Adult Aspirin Regimen) apixaban 2.5 mg tablet (Eliquis) 2.5 mg PO BID 07/01/20 05/13/23 pantoprazole 40 mg tablet,delayed 40 mg PO QAM 07/01/20 05/13/23 release rosuvastatin 20 mg tablet 20 mg PO HS 07/01/20 05/13/23 sennosides 8.6 mg-docusate sodium 2 tab-cap PO BID 07/01/20 05/13/23 50 mg tablet (Senna-S) calcitriol 0.25 mcg capsule 0.25 mcg PO DAILY 03/13/23 05/13/23 magnesium oxide 400 mg (241.3 mg 400 mg PO DAILY 03/13/23 05/13/23 magnesium) tablet trazodone 50 mg tablet 50 mg PO QHS 03/13/23 05/13/23 acebutolol 200 mg capsule 200 mg PO BID 05/13/23 05/13/23 Allergies Allergy/AdvReac Type Severity Reaction Status Date / Time No Known Allergies Allergy Verified 05/13/23 08:17 Review of Systems Review of Systems: CONSTITUTIONAL: Denies body aches, fever, chills EYES: Denies visual changes ENT: Denies rhinorrhea, congestion CARDIOVASCULAR: Denies chest pain, palpitations, or edema. RESPIRATORY: Denies cough or dyspnea. GASTROINTESTINAL: Denies abdominal pain, nausea, vomiting, or diarrhea. SKIN: Reports leg abrasion MUSCULOSKELETAL: Reports left leg pain bruising and swelling Denies back pain, joint pain, or myalgia. NEUROLOGIC: Denies headache, numbness, tingling, or weakness. All systems reviewed & are unremarkable except as noted in HPI and below PMFSH Past Medical History Medical History CAD (coronary artery disease) 4 coronary stents Deviated septum Dialysis patient Elevated troponin Enlarged prostate Heart disease Hypertension Hypertension IBS (irritable bowel syndrome) Obesity Pilonidal cyst Wrist arthritis Surgical History Surgical History H/O heart artery stent 4 coronary stents History of appendectomy Status post bilateral knee replacements Status post coronary artery bypass graft Status post reverse total arthroplasty of right shoulder Family History Family History Father Family history of cardiovascular disease Mother Family history of cardiovascular disease Sibling Family history of cardiovascular disease Sibling Family history of cardiovascular disease Sibling Carcinoma of colon Sibling Hypertension Mother Hypertension Sibling Diabetes mellitus Sibling Chronic obstructive pulmonary disease Other Family history of arthritis Social History Social History Smoking packs per day: 1.5 Smoking cigarettes per day: 30.0 Smoking status: Former smoker Tobacco type: cigarettes Second hand tobacco smoke exposure: No
== END 2023-05-13 09:55 | disposition home or self-care (01) ==
PROVIDERS: Emergency Provider Nurse Practitioner Family; PCP Family Medicine
DX: S80.12XA Contusion of left lower leg, initial encounter (principal); W20.8XXA Other cause of strike by thrown, projected or falling object, initial encounter; R22.42 Localized swelling, mass and lump, left lower limb; Z87.891 Personal history of nicotine dependence; I25.10 Atherosclerotic heart disease of native coronary artery without angina pectoris; Z95.5 Presence of coronary angioplasty implant and graft; N40.0 Benign prostatic hyperplasia without lower urinary tract symptoms; I10 Essential (primary) hypertension; E66.9 Obesity, unspecified; Z68.28 Body mass index [BMI] 28.0-28.9, adult; Z96.653 Presence of artificial knee joint, bilateral; Z79.82 Long term (current) use of aspirin
CPT/HCPCS: 73590; 99213; G0463

== ENCOUNTER 2024-04-28 16:29 | Emergency (ER) | payer MEDICARE, SELFPAY ==
[2024-04-28 16:41] VITALS: BP 161/92; PULSE 87; RESP 16; TEMP 36.8; O2SAT 87
--- NOTE | 2024-04-28 17:25 | ED.WOUNDLAC ---
HPI - Wound/Laceration General Chief Complaint: Wound/Laceration Stated Complaint: lac on back of head Time Seen by Provider: 04/28/24 16:50 Source: patient, RN notes reviewed and old records reviewed Mode of arrival: ambulatory Limitations: no limitations History of Present Illness HPI narrative: 83 year old male accompanied by with complaints of patient falling in the garage within past 20-30 minutes before arrival and hitting the posterior aspect of his head behind his left ear on his work bench. reports that patient did not have LOC at time of the fall and that this is the third time he has fallen in the past week. reports that they have an appointment with his medical doctor tomorrow morning to address these falls, patient states that his legs just give out. Patient has 3cm laceration to his scalp with some active bleeding noted,patient is on Eliquis and has long cardiac history. Onset (ago): minute(s) (occurred within past 20-30 minutes prior to arrival) Location: scalp Place: home Treatments prior to arrival: other (washcloth to scalp) Related Data Home Medications Medication Instructions Recorded Confirmed aspirin 81 mg tablet,delayed 81 mg PO DAILY 12/31/19 05/13/23 release (Adult Aspirin Regimen) apixaban 2.5 mg tablet (Eliquis) 2.5 mg PO BID 07/01/20 05/13/23 pantoprazole 40 mg tablet,delayed 40 mg PO QAM 07/01/20 05/13/23 release rosuvastatin 20 mg tablet 20 mg PO HS 07/01/20 05/13/23 sennosides 8.6 mg-docusate sodium 2 tab-cap PO BID 07/01/20 05/13/23 50 mg tablet (Senna-S) calcitriol 0.25 mcg capsule 0.25 mcg PO DAILY 03/13/23 05/13/23 magnesium oxide 400 mg (241.3 mg 400 mg PO DAILY 03/13/23 05/13/23 magnesium) tablet trazodone 50 mg tablet 50 mg PO QHS 03/13/23 05/13/23 acebutolol 200 mg capsule 200 mg PO BID 05/13/23 05/13/23 Allergies Allergy/AdvReac Type Severity Reaction Status Date / Time No Known Allergies Allergy Verified 05/13/23 08:17 Review of Systems Review of Systems: CONSTITUTIONAL: Denies fever, chills, or sweats. CARDIOVASCULAR: Denies chest pain, palpitations, or edema. RESPIRATORY: Denies cough or dyspnea. SKIN: Reports laceration to the left side of his scalp behind his left ear from fall hitting head on workbench, with no loss of consciousness. Patient states that his legs just gave out, reports that this is third fall in one week. MUSCULOSKELETAL: Denies musculoskeletal pain NEUROLOGIC: Denies numbness, or weakness. All systems reviewed & are unremarkable except as noted in HPI and below PMFSH Past Medical History Medical History CAD (coronary artery disease) 4 coronary stents Deviated septum Dialysis patient Elevated troponin Enlarged prostate Heart disease Hypertension Hypertension IBS (irritable bowel syndrome) Obesity Pilonidal cyst Wrist arthritis Surgical History Surgical History H/O heart artery stent 4 coronary stents History of appendectomy Status post bilateral knee replacements Status post coronary artery bypass graft Status post reverse total arthroplasty of right shoulder Family History Family History Father Family history of cardiovascular disease Mother Family history of cardiovascular disease Sibling Family history of cardiovascular disease Sibling Family history of cardiovascular disease Sibling Carcinoma of colon Sibling Hypertension Mother Hypertension Sibling Diabetes mellitus Sibling Chronic obstructive pulmonary disease Other Family history of arthritis Social History Social History Smoking packs per day: 1.5 Smoking cigarettes per day: 30.0 Smoking status: Former smoker Tobacco type: cigarettes Second hand tobacco smoke exposure: No Smoking end date:
== END 2024-04-28 17:10 | disposition short-term general hospital (02) ==
LOC: EXPBETH 16:31
PROVIDERS: Emergency Provider Registered Nurse; PCP Family Medicine
DX: S01.01XA Laceration without foreign body of scalp, initial encounter (principal); W19.XXXA Unspecified fall, initial encounter; Z79.01 Long term (current) use of anticoagulants; Z87.891 Personal history of nicotine dependence; I25.10 Atherosclerotic heart disease of native coronary artery without angina pectoris; N40.0 Benign prostatic hyperplasia without lower urinary tract symptoms; I10 Essential (primary) hypertension; E66.9 Obesity, unspecified; Z95.5 Presence of coronary angioplasty implant and graft; Z96.653 Presence of artificial knee joint, bilateral
CPT/HCPCS: 99212; G0463